=== PATIENT | male | born 1950 | race Caucasian/White ===

== ENCOUNTER → 2016-07-25 | Outpatient (CLI) | payer OTHER ==
[~2016-07-25] MED LIST: ALL300 PO; CMD5 PO; GLC/500 PO; HYDR25TA4 PO; LEVO25TA5 PO; LISI-729 PO; OXYC-57 PO; PRAV20TA PO; VITAMIN D3 PO
[2016-07-25 16:09] LABS: INR 2.5 (0.9-1.1); PROTHROMBIN TIME (PATIENT) 27.3 SECONDS (9.0-12.0)
== END | disposition home or self-care (01) ==
LOC: C.LABSPEC 15:05
PROVIDERS: ATTEND Internal Medicine
DX: Z86.718 Personal history of other venous thrombosis and embolism (principal); Z79.01 Long term (current) use of anticoagulants

== ENCOUNTER → 2016-08-19 | Outpatient (CLI) | payer OTHER ==
[2016-08-19 12:56] LABS: INR 2.5 (0.9-1.1); PROTHROMBIN TIME (PATIENT) 27.8 SECONDS (9.0-12.0)
[2016-08-19 13:05] LABS: ESTIMATED AVERAGE GLUCOSE 128 mg/dl; HA1C FLAG Normal (Normal)
[2016-08-19 13:09] LABS: BLOOD UREA NITROGEN 9 mg/dl (7-18); GLUCOSE 108 mg/dl (70-99)
[2016-08-19 13:10] LABS: AST/SGOT 24 U/L (15-37); BUN/CREATININE RATIO 9.8 (10-20); CALCIUM 8.9 mg/dl (8.5-10.1); CARBON DIOXIDE 29 mmol/L (21-32); CHLORIDE 103 mmol/L (98-107); CREATININE 0.88 mg/dl (0.60-1.40); POTASSIUM 3.7 mmol/L (3.5-5.1); SODIUM 141 mmol/L (136-145)
[2016-08-19 13:18] LABS: ALKALINE PHOSPHATASE 111 U/L (45-117); ALT/SGPT 34 U/L (12-78); CHOLESTEROL 199 mg/dl (0-200); HDL CHOLESTEROL 50 mg/dl; THYROID STIMULATING HORMONE < 0.005 uIu/ml (0.300-4.500); TRIGLYCERIDES 181 mg/dl (0-150); VERY LOW DENSITY LIPOPROT CALC 36 mg/dl
== END | disposition home or self-care (01) ==
LOC: C.LABSPEC 12:28
PROVIDERS: ATTEND Internal Medicine
DX: I10 Essential (primary) hypertension (principal); E78.5 Hyperlipidemia, unspecified; E11.9 Type 2 diabetes mellitus without complications; E03.9 Hypothyroidism, unspecified; Z11.8 Encounter for screening for other infectious and parasitic diseases

== ENCOUNTER → 2016-08-21 | Outpatient (CLI) | payer OTHER | END | disposition home or self-care (01) | LOC: C.LABSPEC 12:29 | PROVIDERS: ATTEND Internal Medicine | DX: Z12.11 Encounter for screening for malignant neoplasm of colon (principal) ==

== ENCOUNTER → 2016-09-19 | Outpatient (CLI) | payer OTHER ==
[~2016-09-19] MED LIST changes: -OXYC-57 PO
[2016-09-19 13:47] LABS: INR 2.3 (0.9-1.1); PROTHROMBIN TIME (PATIENT) 25.4 SECONDS (9.0-12.0)
== END | disposition home or self-care (01) ==
LOC: C.LABSPEC 12:37
PROVIDERS: ATTEND Internal Medicine
DX: Z86.718 Personal history of other venous thrombosis and embolism (principal)

== ENCOUNTER → 2016-10-19 | Outpatient (CLI) | payer OTHER ==
[2016-10-19 15:27] LABS: INR 2.4 (0.9-1.1); PROTHROMBIN TIME (PATIENT) 26.5 SECONDS (9.0-12.0)
[2016-10-19 19:19] LABS: THYROID STIMULATING HORMONE < 0.005 uIu/ml (0.300-4.500)
== END | disposition home or self-care (01) ==
LOC: C.LABSPEC 14:36
PROVIDERS: ATTEND Internal Medicine
DX: Z86.718 Personal history of other venous thrombosis and embolism (principal); Z79.01 Long term (current) use of anticoagulants; E03.9 Hypothyroidism, unspecified

== ENCOUNTER → 2016-11-21 | Outpatient (CLI) | payer OTHER ==
[2016-11-21 15:44] LABS: INR 2.1 (0.9-1.1); PROTHROMBIN TIME (PATIENT) 22.8 SECONDS (9.0-12.0)
== END | disposition home or self-care (01) ==
LOC: C.LABSPEC 14:54
PROVIDERS: ATTEND Internal Medicine
DX: Z86.718 Personal history of other venous thrombosis and embolism (principal); Z79.01 Long term (current) use of anticoagulants

== ENCOUNTER → 2016-12-19 | Outpatient (CLI) | payer OTHER ==
[2016-12-19 16:05] LABS: INR 2.5 (0.9-1.1); PROTHROMBIN TIME (PATIENT) 27.7 SECONDS (9.0-12.0)
== END | disposition home or self-care (01) ==
LOC: C.LABSPEC 15:00
PROVIDERS: ATTEND Internal Medicine
DX: Z51.81 Encounter for therapeutic drug level monitoring (principal); Z87.718 Personal history of other specified (corrected) congenital malformations of genitourinary system; Z79.01 Long term (current) use of anticoagulants

== ENCOUNTER → 2017-01-23 | Outpatient (CLI) | payer OTHER ==
[2017-01-23 15:07] LABS: INR 2.6 (0.9-1.1); PROTHROMBIN TIME (PATIENT) 28.8 SECONDS (9.0-12.0)
== END | disposition home or self-care (01) ==
LOC: C.LABSPEC 13:30
PROVIDERS: ATTEND Internal Medicine
DX: Z51.81 Encounter for therapeutic drug level monitoring (principal); Z79.01 Long term (current) use of anticoagulants; Z86.718 Personal history of other venous thrombosis and embolism

== ENCOUNTER → 2017-02-20 | Outpatient (CLI) | payer OTHER ==
[2017-02-20 13:22] LABS: PROTHROMBIN TIME (PATIENT) 22.1 SECONDS (9.0-12.0)
[2017-02-20 13:34] LABS: ALT/SGPT 36 U/L (12-78); AST/SGOT 29 U/L (15-37); BLOOD UREA NITROGEN 9 mg/dl (7-18); BUN/CREATININE RATIO 10.7 (10-20); CALCIUM 8.7 mg/dl (8.5-10.1); CARBON DIOXIDE 28 mmol/L (21-32); CHLORIDE 102 mmol/L (98-107); CHOLESTEROL 189 mg/dl (0-200); CREATININE 0.84 mg/dl (0.60-1.40); GLUCOSE 110 mg/dl (70-99); POTASSIUM 3.6 mmol/L (3.5-5.1); SODIUM 139 mmol/L (136-145); T3 TOTAL 1.02 ng/ml (0.60-1.81); THYROXINE (T4) 8.8 mcg/dl (4.5-10.9); TRIGLYCERIDES 136 mg/dl (0-150); VERY LOW DENSITY LIPOPROT CALC 27 mg/dl
[2017-02-20 13:44] LABS: ALB/GLOB RATIO 1.1 (0.9-2); ALKALINE PHOSPHATASE 113 U/L (45-117); CHOLESTEROL/HDL RATIO 3.8; HDL CHOLESTEROL 50 mg/dl; THYROID STIMULATING HORMONE < 0.005 uIu/ml (0.300-4.500)
[2017-02-20 13:52] LABS: ESTIMATED AVERAGE GLUCOSE 128 mg/dl; HA1C FLAG Normal (Normal)
== END ==
LOC: C.LABSPEC 12:25
PROVIDERS: ATTEND Internal Medicine
DX: E11.9 Type 2 diabetes mellitus without complications (principal); I10 Essential (primary) hypertension; E78.5 Hyperlipidemia, unspecified; I82.409 Acute embolism and thrombosis of unspecified deep veins of unspecified lower extremity; E05.90 Thyrotoxicosis, unspecified without thyrotoxic crisis or storm

== ENCOUNTER → 2017-03-21 | Outpatient (CLI) | payer OTHER ==
[2017-03-21 13:25] LABS: INR 1.6 (0.9-1.1); PROTHROMBIN TIME (PATIENT) 17.4 SECONDS (9.0-12.0)
== END | disposition home or self-care (01) ==
LOC: C.LABSPEC 12:06
PROVIDERS: ATTEND Internal Medicine
DX: Z51.81 Encounter for therapeutic drug level monitoring (principal); Z86.718 Personal history of other venous thrombosis and embolism; Z79.01 Long term (current) use of anticoagulants

== ENCOUNTER → 2017-04-03 | Outpatient (CLI) | payer OTHER ==
[2017-04-03 13:33] LABS: INR 2.3 (0.9-1.1); PROTHROMBIN TIME (PATIENT) 25.4 SECONDS (9.0-12.0)
== END | disposition home or self-care (01) ==
LOC: C.LABSPEC 12:20
PROVIDERS: ATTEND Internal Medicine
DX: Z86.718 Personal history of other venous thrombosis and embolism (principal); Z79.01 Long term (current) use of anticoagulants

== ENCOUNTER → 2017-05-22 | Outpatient (CLI) | payer OTHER ==
[2017-05-22 13:26] LABS: INR 3.4 (0.9-1.1); PROTHROMBIN TIME (PATIENT) 38.1 SECONDS (9.0-12.0)
== END | disposition home or self-care (01) ==
LOC: C.LABSPEC 12:39
PROVIDERS: ATTEND Internal Medicine
DX: Z51.81 Encounter for therapeutic drug level monitoring (principal); Z86.718 Personal history of other venous thrombosis and embolism; Z79.01 Long term (current) use of anticoagulants

== ENCOUNTER → 2017-06-05 | Outpatient (CLI) | payer OTHER | END | disposition home or self-care (01) | LOC: C.LABSPEC 15:39 | PROVIDERS: ATTEND Internal Medicine | DX: Z86.718 Personal history of other venous thrombosis and embolism (principal); Z79.01 Long term (current) use of anticoagulants ==

== ENCOUNTER → 2017-07-20 | Outpatient (CLI) | payer OTHER | END | disposition home or self-care (01) | LOC: C.LABSPEC 14:56 | PROVIDERS: ATTEND Internal Medicine | DX: Z86.718 Personal history of other venous thrombosis and embolism (principal); Z79.01 Long term (current) use of anticoagulants ==

== ENCOUNTER → 2017-08-25 | Outpatient (CLI) | payer OTHER ==
[2017-08-25 15:26] LABS: ALBUMIN 3.4 gm/dl (3.4-5.0); ALT/SGPT 44 U/L (12-78); AST/SGOT 27 U/L (15-37); BLOOD UREA NITROGEN 11 mg/dl (7-18); CALCIUM 8.8 mg/dl (8.5-10.1); CARBON DIOXIDE 26 mmol/L (21-32); CREATININE 0.94 mg/dl (0.60-1.40); GLUCOSE 109 mg/dl (70-99); POTASSIUM 3.7 mmol/L (3.5-5.1); SODIUM 140 mmol/L (136-145)
[2017-08-25 15:27] LABS: INR 1.5 (0.9-1.1)
[2017-08-25 15:37] LABS: ALKALINE PHOSPHATASE 125 U/L (45-117); CHOLESTEROL 185 mg/dl (0-200); LDL CHOLESTEROL (DIRECT) 122 mg/dl
[2017-08-26 07:16] LABS: HEMOGLOBIN A1C 6.3 % (4.5-5.6)
== END | disposition home or self-care (01) ==
LOC: C.LABSPEC 15:04
PROVIDERS: ATTEND Internal Medicine
DX: E11.9 Type 2 diabetes mellitus without complications (principal); I10 Essential (primary) hypertension; E78.5 Hyperlipidemia, unspecified; E03.9 Hypothyroidism, unspecified; I26.99 Other pulmonary embolism without acute cor pulmonale

== ENCOUNTER → 2017-08-29 | Outpatient (CLI) | payer OTHER ==
[2017-09-11 18:20] LABS: FECAL OCCULT BLOOD #1 NEGATIVE (NEGATIVE); FECAL OCCULT BLOOD #2 NEGATIVE (NEGATIVE); FECAL OCCULT BLOOD #3 NEGATIVE (NEGATIVE)
== END | disposition home or self-care (01) ==
LOC: C.LABSPEC 17:52
PROVIDERS: ATTEND Internal Medicine
DX: Z12.11 Encounter for screening for malignant neoplasm of colon (principal)

== ENCOUNTER → 2017-09-11 | Outpatient (CLI) | payer OTHER ==
[2017-09-11 15:24] LABS: INR 3.7 (0.9-1.1)
== END | disposition home or self-care (01) ==
LOC: C.LABSPEC 14:47
PROVIDERS: ATTEND Internal Medicine
DX: Z51.81 Encounter for therapeutic drug level monitoring (principal); Z79.01 Long term (current) use of anticoagulants; Z86.718 Personal history of other venous thrombosis and embolism

== ENCOUNTER → 2017-09-25 | Outpatient (CLI) | payer OTHER ==
[2017-09-25 13:45] LABS: INR 3.5 (0.9-1.1)
== END | disposition home or self-care (01) ==
LOC: C.LABSPEC 12:32
PROVIDERS: ATTEND Internal Medicine
DX: Z86.718 Personal history of other venous thrombosis and embolism (principal); Z79.01 Long term (current) use of anticoagulants

== ENCOUNTER → 2017-10-10 | Outpatient (CLI) | payer OTHER | END | disposition home or self-care (01) | LOC: C.LABSPEC 12:46 | PROVIDERS: ATTEND Internal Medicine | DX: Z86.718 Personal history of other venous thrombosis and embolism (principal); Z79.01 Long term (current) use of anticoagulants ==

== ENCOUNTER → 2017-11-07 | Outpatient (CLI) | payer OTHER ==
[2017-11-07 19:57] LABS: INR 3.2 (0.9-1.1)
== END | disposition home or self-care (01) ==
LOC: C.LABSPEC 17:04
PROVIDERS: ATTEND Internal Medicine
DX: Z86.718 Personal history of other venous thrombosis and embolism (principal); Z79.01 Long term (current) use of anticoagulants

== ENCOUNTER → 2018-01-17 | Outpatient (CLI) | payer OTHER | END | disposition home or self-care (01) | LOC: C.LABSPEC 12:43 | PROVIDERS: ATTEND Internal Medicine | DX: Z86.718 Personal history of other venous thrombosis and embolism (principal); Z79.01 Long term (current) use of anticoagulants ==

== ENCOUNTER → 2018-02-22 | Outpatient (CLI) | payer OTHER ==
[2018-02-22 13:20] LABS: INR 1.6 (0.9-1.1)
[2018-02-22 13:53] LABS: HEMOGLOBIN A1C 6.1 % (4.5-5.6)
[2018-02-22 15:36] LABS: ALBUMIN 3.4 gm/dl (3.4-5.0); ALKALINE PHOSPHATASE 121 U/L (45-117); ALT/SGPT 43 U/L (12-78); AST/SGOT 34 U/L (15-37); BLOOD UREA NITROGEN 12 mg/dl (7-18); CALCIUM 8.6 mg/dl (8.5-10.1); CARBON DIOXIDE 27 mmol/L (21-32); CHOLESTEROL 162 mg/dl (0-200); CREATININE 0.81 mg/dl (0.60-1.40); GLUCOSE 100 mg/dl (70-99); LDL CHOLESTEROL (DIRECT) 105 mg/dl; POTASSIUM 3.5 mmol/L (3.5-5.1); SODIUM 139 mmol/L (136-145)
== END | disposition home or self-care (01) ==
LOC: C.LABSPEC 12:59
PROVIDERS: ATTEND Internal Medicine
DX: E78.5 Hyperlipidemia, unspecified (principal); E11.9 Type 2 diabetes mellitus without complications; E05.90 Thyrotoxicosis, unspecified without thyrotoxic crisis or storm; I82.409 Acute embolism and thrombosis of unspecified deep veins of unspecified lower extremity

== ENCOUNTER 2022-11-23 06:24 | Observation (INO) ==
[2022-11-23 07:29] LABS: Platelet Count 290 K/uL (130-400)
[2022-11-23 07:49] LABS: INR 1.4 (0.9-1.1); Prothrombin Time 15.4 Seconds (9.0-12.0)
[2022-11-23] MEDS ORDERED: fentaNYL citrate PF 100 MCG/2 ML VIAL ONE (08:20)
[2022-11-23] MEDS ORDERED: ACETAMINOPHEN 500 MG TAB PO PRN (09:04)
--- NOTE | 2022-11-23 09:17 | XRay Report ---
XR chest 1V not portable HISTORY: s/p rt lung mass bx COMPARISON: Chest 02/09/2016. PET CT 11/10/2022. FINDINGS: There is again noted a 4 cm right upper lobe masslike density. No pneumothorax. No pleural effusions. The left lung is clear. The heart is normal in size. IMPRESSION: No pneumothorax status post biopsy of the 4 cm right upper lobe masslike density. ACT 112: Negative or not required by law. Electronically signed by: Davonte Amado M.D. 11/23/2022 9:16 AM
--- NOTE | 2022-11-23 11:45 | XRay Report ---
XR chest 1V portable CLINICAL HISTORY: post lung biopsy TECHNIQUE: Single frontal radiograph of the chest was obtained. Comparison: Comparison is made to chest radiograph 11/23/2022 FINDINGS: No lines and tubes are seen. The cardiomediastinal silhouette is normal. Right lung mass is again see n. There is a small right pneumothorax measuring approximately 5 mm in thickness. IMPRESSION: Tiny right pneumothorax status post biopsy. ACT 112: Negative or not required by law. Electronically signed by: Danish Bolton M.D. 11/23/2022 11:44 AM
--- NOTE | 2022-11-23 13:13 | XRay Report ---
XR chest 1V not portable CLINICAL HISTORY: f/u ptx. do at 1pm with stat read COMPARISON STUDY: Chest radiograph November 23, 2022 at 11:32 AM. FINDINGS: A right pneumothorax has increased in size since prior exam. Pleural separation now measure s 1.4 cm. Right upper lobe mass is again noted. There is no left pneumothorax. No evidence for pulmon michael edema. IMPRESSION: Increase in size of a small to moderate right pneumothorax. An additional short-term fol low-up chest radiograph in 2 to 3 hours is recommended for reassessment. ACT 112: Negative or not required by law. Electronically signed by: Juanito Chapman M.D. 11/23/2022 1:11 PM
--- NOTE | 2022-11-23 14:07 | History & Physical Report ---
Date of Service November 23, 2022 Assessment & Plan (1) Mass of right lung: Plan: Post biopsy pneumothorax CXR 0904: No pneumothorax s/p biopsy of 4 cm right upper lobe masslike density. CXR 1109: 5 mm small right pneumothorax. Patient placed on 4 L nasal cannula CXR 1216: Increase in size of pneumothorax from small to moderate right-sided, pleural separation increased to 1.4 cm. - Aymptomatic at bedside assessment - 4L NC increased to 100% NR 1500 repeat CXR shows interval improvement of pleural separation down to less than 1 cm Discussed with IR. As patient is improving with pneumo diminishing in size will defer pulmonology consult and defer chest tube placement at this time, and follow clinically overnight. Repeat chest x-ray in the morning. We will continue supplemental oxygen for another 4-6 hours by either nonrebreather or oxy mask, then decrease to nasal cannula if doing well until repeat x-ray in the morning. Do not use high flow or pressurized oxygen. If any clinical deterioration obtain stat chest x-ray overnight History of recurrent DVT and Kishor filter Patient on warfarin at baseline, was pending conversion to DOAC as outpatient per cardiology note Warfarin has been held periprocedurally for IR biopsy last INR 1.4 Per patient has had recurrent DVTs and currently has a Gower filter in place. Patient has been offered DOAC in the past for long-term VTE management, does not wish to switch to this from warfarin. Warfarin remains held overnight as patient has Gower filter in place, has been on long-term treatment, and if worsening may require a chest tube overnight. Resume tomorrow if doing well Hyperlipidemia Continue statin Hypertension On HCTZ, lisinopril. Continued, hold if KEHINDE noted on renal labs BMP pending Type II DM Home metformin held, weight-based SSI while inpatient Glucose checks AC/at bedtime DM 2 diet We will use ratio and CF 15/40 while inpatient. Defer basal. Trend BMP Cgqvv-Hbsmoxmoc-Emvfl syndrome Noted Follows with cardiology, no history of treatment or symptoms for this DVT PPx: SCDs, warfarin temporarily held Diet: DM 2 Disposition: Monitoring on PCU for pneumo progression CODE STATUS: Full code. Patient would not want prolonged intubation. (2) WPW (Tzogp-Rmxjpwpty-Ybpvk syndrome): (3) Type 2 diabetes mellitus: (4) Recurrent deep vein thrombosis (DVT): (5) Acute pneumothorax: History of Present Illness Primary Care Provider: KATI Leahy Silvano is a 72-year-old male with a past medical history of DVT on Eliquis temp orarily held for percutaneous IR biopsy of right upper lobe mass, gout, hypercholesterolemia, hypertension, WPW, and type 2 diabetes mellitus who presented for IR guided biopsy of right upper lobe lung mass and he was recommended as a direct admission for small but enlarging right-sided pneumo on serial imaging. Baseline labs: Pending. Last platelet count 11/23 290, INR 1.4 Discussed with on-call clinical coordinator, unfortunately are currently on flow for all levels of care. Discussed ER transfer for bed availability with IR & coordinator, rather than transfer to ER patient with be admitted to an available bed on PCU statu. Silvano is seen at the bedside. He reports he was having the baseline for a right lung mass today. He is currently sitting up at the bedside, and reports that if we were not telling him anything was wrong he would not be aware. He reports he has no pain at his biopsy site. He has no shortness of breath, chest pain, chest pressure, difficulty breathing, lightheadedness, dizziness. He has no chest pain with inspiration. He feels comfortable on 4 L of nasal cannula. He endorses a history of Tkzbe-Gjgtzzwza-Uebiz with no symptoms or prior treatments/interventions required. He does follow with cardiology as outpatient. He has had a history of recurrent DVT with a Kishor filter which remains in place. He is on warfarin at baseline which was held p eriprocedurally, last INR was 1.40 which she is aware. Patient had had other anticoagulation options including Eliquis/Xarelto mention to him as outpatient, he declines these and prefers to remain on warfarin for anticoagulation. He has never had a PE. He did not take any ofhis medications this morning, notes the updated list including allopurinol/atorvastatin/hydrochlorothiazide/losartan/metformin/potassium are correct. He denies tobacco/alcohol/substance use. Full code. Case also discussed with nursing at bedside, will increase O2 to 100% nonrebreather and perform repeat chest x-ray at 3:00. If patient continues to have an expanding pneumothorax will have chest tube placed by IR and follow-up. Pleural separation is stable we will continue serial imaging Medical History: Reviewed Medications: Reviewed Surgical History: Reviewed Family history: Reviewed Allergies: Reviewed Social History: No tobacco/alcohol Code Status: Full Allergies Allergy/AdvReac Type Severity Reaction Status Date / Time bee venom protein (honey bee) Allergy Unknown ANAPHYLAXIS Unverified 08/04/22 09:38 lisinopril AdvReac Intermediate Cough Verified 08/04/22 09:38 Home Medications Medication Instructions Recorded Confirmed Type cholecalciferol (vitamin D3) 125 125 mcg PO DAILY 10/22/21 11/23/22 History mcg (5,000 unit) capsule metformin 500 mg tablet 500 mg PO DAILY 10/22/21 11/23/22 History hydrochlorothiazide 25 mg tablet 25 mg PO DAILY #90 tabs 01/10/22 11/23/22 Rx warfarin 5 mg tablet 5 mg PO .COMPLEX #90 tabs 03/14/22 11/23/22 Rx losartan 100 mg tablet 100 mg PO DAILY #90 tabs 08/04/22 11/23/22 Rx potassium chloride 10 mEq 10 meq PO DAILY #90 tabs 08/04/22 11/23/22 Rx tablet,extended release(part/cryst) allopurinol 300 mg tablet 300 mg PO DAILY #90 tabs 11/21/22 11/23/22 Rx atorvastatin 80 mg tablet 80 mg PO DAILY 11/23/22 11/23/22 History Past Med/Surg History Medical History (Updated 11/23/22 @ 15:42 by Esdras Lao MD) Abnormal computed tomography of lung BPH (benign prostatic hyperplasia) BPH (benign prostatic hyperplasia) COVID-19 (~07/24/22) Current use of jail anticoagulation Gout Hypercholesterolemia Hypertension Mass of right lung Pneumonia due to COVID-19 virus Recurrent deep vein thrombosis (DVT) Type 2 diabetes mellitus WPW (Uardo-Cnkfehldp-Zeapr syndrome) Surgical History S/P knee surgery left Family History Other Hypertension Denies family history of Prostate cancer Heart disease Myocardial infarction Colorectal cancer Stroke Social History Smoking Status: Former smoker Tobacco Type: Cigarettes Age Quit Using Tobacco: 41; packs per day: 1; Second Hand Exposure: No; Do You Dip or Chew Tobacco: No; Hx Alcohol Use: No Hx Substance Use: No Preferred Language: Syriac Communication Ability: Effective Visual Impairment: No Limitations Hearing Ability: Hard of Hearing Insulation Foreman Required: No Beliefs That Will Affect Care: None marital status: Current Living Situation: Spouse current occupational status: retired How many Children do You have: 3 Feels Safe at Home: Yes Childhood Exposure to Second-Hand Smoke: Yes Diet: regular Diet Comment: regular caffeine: Yes during the past year weight has: remained stable Dental Care, Regularly: Yes Physical Activity Frequency: Daily Physical Activity Frequency Comment: yard work Seatbelt Use: always Sunscreen Use: No Physical Exam Physical Exam: General: A&Ox3. NAD. Cooperative. HEENT: Atraumatic, normocephalic. Vision and hearing grossly intact Pulm: Posterior right Band-Aid overlying CT biopsy site, C/D/I CTAB A&P. - wheezes, -rales, -rhonchi. Symmetrical chest rise. No increased work of breathing. No respiratory distress. Cardiac: RRR, -mrg. Radial pulses intact and symmetrical. Abdominal: Nontender, nondistended, soft. BS present. Legs: Warm, dry. No edema Results & Data Results & Data Vital Signs (Past 12 Hours) Vital Signs Temp Pulse Resp BP Pulse Ox O2 Del Method O2 Flow Rate 11/23/22 13:30 78 16 158/85 H 99 Room Air 4 11/23/22 13:00 80 16 178/84 H 99 Nasal Cannula 4 11/23/22 12:30 85 16 147/76 H 99 Nasal Cannula 4 11/23/22 12:00 78 16 142/74 H 95 Room Air 11/23/22 11:30 74 16 138/77 96 Room Air 11/23/22 11:00 72 16 136/74 95 Room Air 11/23/22 10:30 74 16 135/77 93 Room Air 11/23/22 10:00 70 16 138/72 93 Room Air 11/23/22 09:45 72 16 135/77 93 Room Air 11/23/22 09:30 77 16 140/88 94 Room Air 11/23/22 09:15 78 16 142/78 H 93 Room Air 11/23/22 09:00 86 16 140/77 93 Room Air 11/23/22 07:19 36.6 C 78 78 H 151/86 H 93 Room Air Code Status & VTE Plan VTE Prophylaxis Plan VTE Prophylaxis will be ordered: Yes PG Care Time/CCT Total # of Minutes Spent Total Time Spent with Patient: Total time spent is greater than 50% in coordination of care (as documented) at patient's floor/unit and/or counseling patient: Coding Level of Care Code 74835 INT INP/OBS CARE 3/75MIN Diagnoses Mass of right lung R91.8 WPW (Duwqt-Anwthpdyk-Lvgxq syndrome) I45.6 Type 2 diabetes mellitus E11.9 Recurrent deep vein thrombosis (DVT) I82.409 Acute pneumothorax J93.83
[2022-11-23] MEDS ORDERED: ACETAMINOPHEN 325 MG TAB PO PRN (14:53)
--- NOTE | 2022-11-23 15:09 | CT Scan Report ---
CT-guided right lung mass core biopsy INDICATION: Right upper lobe lung mass PROCEDURE: Procedure and risks were explained. Informed consent was obtained. A final timeout was com pleted. The patient was placed prone on the CT exam table. The posterior right thorax was prepped and draped in sterile fashion. 1% buffered lidocaine was utilized for skin anesthesia. Utilizing CT guidance, a 19-gauge coaxial needle was advanced into the right upper lobe lung mass. A 20-gauge core biopsy needle was advanced, and 2 cores were obtained and given to the pathologist for review. The coaxial needle was removed and Band-Aid applied. The patient tolerated the procedure well . Post CT imaging demonstrated no immediate complications of pneumothorax or hemorrhage. A chest x-ra y will be obtained immediately and 2 hours post procedure. Vital signs will be monitored postprocedur e. IMPRESSION: CT-guided right upper lobe lung mass core biopsy as above. Performed, dictated, and signed by Trent Arevalo PA-C; to be co-signed by Dr. Danish Bolton. Electronically signed by: Danish Bolton M.D. 11/23/2022 4:55 PM
--- NOTE | 2022-11-23 15:26 | XRay Report ---
XR chest 2V PA/lateral CLINICAL HISTORY: R PNEUMO MONITORING. @ 1500HRS TECHNIQUE: 2 views of the chest were obtained. Comparison: Comparison is made to chest radiograph 11/23/2022 FINDINGS: No lines and tubes are seen. Calcified aortic knob is seen. Right pulmonary mass measures 37 mm. Pneu mothorax has decreased in size, previously measured 14 mm now measures 10 mm. No evidence of pleural effusion or pneumothorax. IMPRESSION: Interval decrease in size of previously noted pneumothorax. Otherwise expected postbiopsy changes. ACT 112: Negative or not required by law. Electronically signed by: Danish Bolton M.D. 11/23/2022 3:25 PM
[2022-11-23] MEDS ORDERED: GLUCOSE 40% GEL 15 GM TUBE PO PRN (15:44)
[2022-11-23] MEDS ORDERED: GLUCOSE 10 TAB/TUBE PO PRN (15:44)
[2022-11-23] MEDS ORDERED: DEXTROSE 50% 50 ML SYRINGE IV PRN (15:44)
[2022-11-23] MEDS ORDERED: GLUCAGON FOR INJ 1 MG VIAL SQ PRN (15:44)
[2022-11-23] MEDS ORDERED: CARBOHYDRATES FOR HYPOGLYCEMIA PO PRN (15:44)
[2022-11-23 15:58] LABS: Basophils # (auto) 0.04 K/uL (0-0.2); Basophils % (auto) 0.5 %; Eosinophils # (auto) 0.03 K/uL (0-0.50); Eosinophils % (auto) 0.4 %; Hematocrit (blood only) 43.3 % (42.0-52.0); Hemoglobin 14.4 g/dl (14.0-18.0); Immature Granulocytes # (auto) 0.03 K/uL (0.01-0.20); Immature Granulocytes % (auto) 0.4 %; Lymphocytes # (auto) 1.22 K/uL (1.2-3.4); Lymphocytes % (auto) 15.3 %; Mean Corpuscular Hemoglobin 29.3 pg (25.0-34.0); Mean Corpuscular Hgb Conc 33.3 g/dL (32.0-36.0); Mean Platelet Volume 9.4 fL (9.4-12.4); Monocytes # (auto) 0.67 K/uL (0.11-0.59); Monocytes % (auto) 8.4 %; Neutrophils # (auto) 5.96 K/uL (1.40-6.50); Platelet Count 274 K/uL (130-400); RDW Coefficient of Variation 13.3 % (11.5-14.5); RDW Standard Deviation 42.9 fL (36.4-46.3); Red Blood Count 4.92 M/uL (4.70-6.10); White Blood Count 7.95 K/ul (4.8-10.8)
[2022-11-23 16:09] LABS: BUN Creatinine Ratio 8.4 (10-20); Calcium 9.2 mg/dl (8.6-10.3); Est GFR (African American) 91.7 ml/min; Est GFR (Non-African American) 79.1 ml/min; Potassium 3.8 mmol/L (3.5-5.1)
[2022-11-23] MEDS: INSULIN ASPART PER UNIT CHARGE SC SCH ×2 (16:43→20:01)
[2022-11-24 02:18] LABS: Basophils # (auto) 0.04 K/uL (0-0.2); Basophils % (auto) 0.5 %; Eosinophils # (auto) 0.07 K/uL (0-0.50); Eosinophils % (auto) 0.9 %; Hematocrit (blood only) 40.2 % (42.0-52.0); Hemoglobin 13.5 g/dl (14.0-18.0); Immature Granulocytes # (auto) 0.01 K/uL (0.01-0.20); Immature Granulocytes % (auto) 0.1 %; Lymphocytes # (auto) 1.46 K/uL (1.2-3.4); Lymphocytes % (auto) 19.3 %; Mean Corpuscular Hemoglobin 29.3 pg (25.0-34.0); Mean Corpuscular Hgb Conc 33.6 g/dL (32.0-36.0); Mean Corpuscular Volume 87.4 fL (80.0-100.0); Mean Platelet Volume 9.5 fL (9.4-12.4); Monocytes # (auto) 0.69 K/uL (0.11-0.59); Monocytes % (auto) 9.1 %; Neutrophils # (auto) 5.31 K/uL (1.40-6.50); Neutrophils % (auto) 70.1 %; Platelet Count 262 K/uL (130-400); RDW Coefficient of Variation 13.4 % (11.5-14.5); RDW Standard Deviation 42.5 fL (36.4-46.3); White Blood Count 7.58 K/ul (4.8-10.8)
[2022-11-24 02:36] LABS: BUN Creatinine Ratio 10.3 (10-20); Calcium 8.8 mg/dl (8.6-10.3); Est GFR (African American) 99.2 ml/min; Est GFR (Non-African American) 85.6 ml/min; Magnesium 1.8 mg/dl (1.7-2.4); Potassium 3.1 mmol/L (3.5-5.1)
[2022-11-24] MEDS: MAGNESIUM SULFATE / D5W 1 GM/100 ML BAG IV SCH ×2 (03:14→05:08)
[2022-11-24] MEDS: POTASSIUM CHLORIDE / WTR 10 MEQ/100 ML PLCT IV SCH ×6 (03:23→09:01)
[2022-11-24] MEDS: INSULIN ASPART PER UNIT CHARGE SC SCH (08:28)
--- NOTE | 2022-11-24 08:50 | XRay Report ---
XR chest 1V portable CLINICAL HISTORY: Follow up pneumothorax. COMPARISON STUDY: Chest radiograph November 23, 2022 at 3:23 PM. FINDINGS: The right pneumothorax has decreased in size. There is a tiny residual right apical pneumot horax. Right upper lobe mass is again noted. Cardiomediastinal silhouette is stable. IMPRESSION: Significant decrease in size of the right pneumothorax with a tiny residual apical pneumo thorax. ACT 112: Negative or not required by law. Electronically signed by: Juanito Chapman M.D. 11/24/2022 8:48 AM
[2022-11-24] MEDS ORDERED: POTASSIUM CHLORIDE 10 MEQ TABCR PO SCH (09:00)
[2022-11-24] MEDS ORDERED: ATORVASTATIN 40 MG TAB PO SCH (09:00)
[2022-11-24] MEDS ORDERED: allopurinoL 300 MG TAB PO SCH (09:00)
[2022-11-24] MEDS ORDERED: LOSARTAN POTASSIUM 50 MG TAB PO SCH (09:00)
[2022-11-24] MEDS ORDERED: hydroCHLOROthiazide 25 MG TAB PO SCH (09:00)
--- NOTE | 2022-11-24 18:19 | Discharge Summary ---
Date of Service November 24, 2022 Admission HPI Per Admitting Provider Silvano is a 72-year-old male with a past medical history of DVT on Eliquis temporarily held for percutaneous IR biopsy of right upper lobe mass, gout, hypercholesterolemia, hypertension, WPW, and type 2 diabetes mellitus who presented for IR guided biopsy of right upper lobe lung mass and he was recommended as a direct admission for small but enlarging right-sided pneumo on serial imaging. Baseline labs: Pending. Last platelet count 11/23 290, INR 1.4 Discussed with on-call clinical coordinator, unfortunately are currently on flow for all levels of care. Discussed ER transfer for bed availability with IR & coordinator, rather than transfer to ER patient with be admitted to an available bed on PCU statu. Silvano is seen at the bedside. He reports he was having the baseline for a right lung mass today. He is currently sitting up at the bedside, and reports that if we were not telling him anything was wrong he would not be aware. He reports he has no pain at his biopsy site. He has no shortness of breath, chest pain, chest pressure, difficulty breathing, lightheadedness, dizziness. He has no chest pain with inspiration. He feels comfortable on 4 L of nasal cannula. He endorses a history of Kqrcd-Xromxwgej-Qriwu with no symptoms or prior treatments/interventions required. He does follow with cardiology as outpatient. He has had a history of recurrent DVT with a Kishor filter which remains in place. He is on warfarin at baseline which was held periprocedurally, last INR was 1.40 which she is aware. Patient had had other anticoagulation options including Eliquis/Xarelto mention to him as outpatient, he declines these and prefers to remain on warfarin for anticoagulation. He has never had a PE. He did not take any ofhis medications this morning, notes the updated list including all opurinol/atorvastatin/hydrochlorothiazide/losartan/metformin/potassium are correct. He denies tobacco/alcohol/substance use. Full code. Case also discussed with nursing at bedside, will increase O2 to 100% nonrebreather and perform repeat chest x-ray at 3:00. If patient continues to have an expanding pneumothorax will have chest tube placed by IR and follow-up. Pleural separation is stable we will continue serial imaging Medical History: Reviewed Medications: Reviewed Surgical History: Reviewed Family history: Reviewed Allergies: Reviewed Social History: No tobacco/alcohol Code Status: Full Principal Diagnosis post biopsy pneumothorax Discharge Exam Lungs are clear, cardiac exam is regular Discharge Data Allergies Allergy/AdvReac Type Severity Reaction Status Date / Time bee venom protein (honey bee) Allergy Unknown ANAPHYLAXIS Unverified 08/04/22 09:38 lisinopril AdvReac Intermediate Cough Verified 08/04/22 09:38 Procedures Performed Operation Date: 11/23/22 07:00 Actual Procedures p Lung Biopsy(Right) - KATI Leahy Ordered Studies 11/23/22 07:00 IR biopsy lung RT CT Stat CXR on 11/24/22 Significant decrease in size of the right pneumothorax with a tiny residual apical pneumothorax. Hospital Course (1) Mass of right lung: Post biopsy pneumothorax CXR 0904: No pneumothorax s/p biopsy of 4 cm right upper lobe masslike density. CXR 1109: 5 mm small right pneumothorax. Patient placed on 4 L nasal cannula CXR 1216: Increase in size of pneumothorax from small to moderate right-sided, pleural separation increased to 1.4 cm. - Aymptomatic at bedside assessment - CXR shows improvement History of recurrent DVT and Kishor filter Patient on warfarin at baseline, was pending conversion to DOAC as outpatient per cardiology note Warfarin has been held periprocedurally for IR biopsy, [place] filter in place Patient has been offered DOAC in the past for long-term VTE management, does not wish to switch to this from warfarin. will restart coumadin 11/24/22, outpt recheck next week Hyperlipidemia Continue statin Hypertension On HCTZ, lisinopril. Type II DM Home metformin DM 2 diet Vpzzu-Xbbxamgfk-Msnew syndrome Noted Follows with cardiology, no history of treatment or symptoms for this CODE STATUS: Full code. Patient would not want prolonged intubation. (2) WPW (Ljngh-Kduvcddvb-Avvob syndrome): (3) Type 2 diabetes mellitus: (4) Recurrent deep vein thrombosis (DVT): (5) Acute pneumothorax: Total Time Total Time Spent Total Time Spent (In Minutes): less than 30 minutes required to create this discharge summary Discharge Plan Discharge Items Patient Disposition: Home - Self-Care Reason For Visit: R91.8 - Other nonspecific abnormal finding of lung Discharge Diagnosis: post procedure collapse of lung Activity: Resume your previous activity Non-emergency contact: Primary Care Provider Call non-emergency contact if: your pain is worsening and your temperature is above 101 Follow-up/Referrals: Trent Prince CRNP [Primary Care Provider] - 11/30/22 8:20 am Diet: Regular Addtl Attending Provider Instructions: resume his coumadin 11/24 in pm. , please have your coumadin level monitored as an outpt next week monday or monday Please return to the hospital if worsening shorness of breath or coughing up blood Pending Studies at Discharge: Yes Stand-Alone Forms: My [facility], Smoking Cessation Medications and DC Order Prescriptions: Continued hydrochlorothiazide 25 mg tablet 25 mg PO DAILY Qty: 90 3RF warfarin 5 mg tablet 5 mg PO .COMPLEX Qty: 90 3RF Protocol: Dose Management Condition: Monday Dose/Route: 5 mg Instruction: 1 x 5 mg tablet Condition: Monday Dose/Route: 2.5 mg Instruction: 0.5 x 5 mg tablets Condition: Monday Dose/Route: 5 mg Instruction: 1 x 5 mg tablet Condition: Monday Dose/Route: 2.5 mg Instruction: 0.5 x 5 mg tablets Condition: Dose/Route: 5 mg Instruction: 1 x 5 mg tablet Condition: Monday Dose/Route: 2.5 mg Instruction: 0.5 x 5 mg tablets Condition: Monday Dose/Route: 5 mg Instruction: 1 x 5 mg tablet Protocol Text: Adjustment Start Date: Monday10/31/22 INR Value: 2.4 INR Date: 10/31/22 Recheck Date: 11/30/22 Rx Instructions: Take 1 tab PO daily 6 days per week, 1/2 tab PO 1 day per week allopurinol 300 mg tablet 300 mg PO DAILY Qty: 90 1RF metformin 500 mg tablet 500 mg PO DAILY cholecalciferol (vitamin D3) 125 mcg (5,000 unit) capsule 125 mcg PO DAILY losartan 100 mg tablet 100 mg PO DAILY Qty: 90 3RF potassium chloride 10 mEq tablet,ER particles/crystals 10 meq PO DAILY Qty: 90 2RF atorvastatin 80 mg Tablet 80 mg PO DAILY Discharge Orders: Discharge Order (Routine); Ordered 11/24/22 Ordered By: Elijah Gloria/Other Patient Handouts: Needle Biopsy Lung Dc Admission Data Admit Date/Time: 11/23/22 13:22 Attending Provider: Elijah Olivia Admit Provider: Esdras Lao Primary Care Provider: Ternt Prince Other Interventions: Discharge Summary Assessment (RN) Last Done: 11/24/22 11:02 Discharge Summary Assessment (RN) Last Done: 11/24/22 10:54 Coding Level of Care Code 33309 IN/OBS DISCH 30 MIN/LESS Diagnoses Mass of right lung R91.8 WPW (Tzcpq-Yqaaozxcd-Oyelh syndrome) I45.6 Type 2 diabetes mellitus E11.9 Recurrent deep vein thrombosis (DVT) I82.409 Acute pneumothorax J93.83
== END 2022-11-24 11:16 | disposition home or self-care (01) ==
LOC: 1E 06:24 → SUATTDRO 13:22 → 2S 21:35